=== PATIENT | female | born 1960 | race Caucasian/White ===

== ENCOUNTER 2016-06-05 09:07 | Emergency (ER) | payer MEDICAID | END 2016-06-05 10:21 | disposition left against medical advice (07) | LOC: UCCORT 09:07 | DX: H57.8 Other specified disorders of eye and adnexa (principal); Z53.21 Procedure and treatment not carried out due to patient leaving prior to being seen by health care provider ==

== ENCOUNTER 2016-06-05 11:59 | Emergency (ER) | payer MEDICAID ==
[2016-06-05 13:57] VITALS: BP 128/76
--- NOTE | 2016-06-05 14:11 | UC ---
Eye Complaint HPI - HPI Summary HPI Summary: 55 yo female with bilateral eye redness and d/c (R>L) no eye pain right eye matted shut this am - History of Current Complaint Chief Complaint: UCEye Stated Complaint: EYE COMPLAINT Time Seen by Provider: 06/05/16 13:46 Hx Obtained From: Patient Onset/Duration: Gradual Onset, Lasting Days Timing: Constant Severity Initially: Mild Severity Currently: Mild Pain Intensity: 0 Pain Scale Used: 0-10 Numeric Location of Injury: Conjunctiva Aggravating Factor(s): Nothing Alleviating Factor(s): Nothing Associated Signs And Symptoms: Positive: Drainage (Purulent) - Risk Factors Penetrating Injury Risk Factor: Negative Globe Rupture Risk Factors: Negative Acute Glaucoma Risk Factors: Negative Optic Artery Occlusion Risk Factors: Negative - Allergies/Home Medications Allergies/Adverse Reactions: Allergies Allergy/AdvReac Type Severity Reaction Status Date / Time Bupropion [From Wellbutrin] Allergy Unknown Unknown Verified 09/30/14 18:11 Reaction Details Dicloxacillin Allergy Unknown Unknown Verified 09/30/14 18:11 Reaction Details Erythromycin Allergy Unknown Unknown Verified 09/30/14 18:11 Reaction Details Penicillins Allergy Unknown Unknown Verified 09/30/14 18:11 Reaction Details Sulfamethoxazole Allergy Unknown Unknown Verified 09/30/14 18:11 Reaction Details Sulfamethoxazole Allergy Unknown Unknown Verified 09/30/14 18:11 w/Trimethoprim Reaction [From Bactrim] Details Trimethoprim Allergy Unknown Verified 06/05/16 13:57 Reaction Details Home Medications: Home Medications Acetaminophen [Eq Acetaminophen] 500 mg PO Q6HR PRN 06/05/16 [History Confirmed 06/05/16] Centrum Silver 1 tab PO DAILY 06/05/16 [History] Gabapentin CAP(*) [Neurontin 100 mg CAP(*)] 100 mg PO DAILY 06/05/16 [History Confirmed 06/05/16] Nystatin TOP POWDER* 1 applic TOPICAL BID 06/05/16 [History Confirmed 06/05/16] Polyethylene Glycol 3350* [Miralax*] 17 gm PO DAILY 06/05/16 [History Confirmed 06/05/16] guaiFENesin LIQ* [Robitussin*] 5 mg PO Q4H PRN 06/05/16 [History Confirmed 06/05] PMH/Surg Hx/FS Hx/Imm Hx Previously Healthy: Yes - MR Endocrine History Of: Reports: Thyroid Disease - hypothyroidism Psychological History Of: Reports: Depression Other History Of: Hepatitis C - Surgical History Surgical History: Unable to Obtain/Confirm - Family History Known Family History: Positive: Unknown - pt has MR and unsure of PMx - Social History Alcohol Use: Occasionally Alcohol Amount: 1 beer weekly Substance Use Type: None Smoking Status (MU): Never Smoked Tobacco - Immunization History Most Recent Influenza Vaccination: 2016 Review of Systems Constitutional: Negative Skin: Negative Eyes: Drainage, Eye Redness ENT: Negative Respiratory: Negative Cardiovascular: Negative Gastrointestinal: Negative Genitourinary: Negative Motor: Negative Neurovascular: Negative Musculoskeletal: Negative Neurological: Negative Psychological: Negative All Other Systems Reviewed And Are Negative: Yes Physical Exam Triage Information Reviewed: Yes Appearance: Well-Appearing, No Pain Distress, Well-Nourished Vital Signs: Initial Vital Signs Temp 97.7 F 06/05/16 13:49 Pulse 56 06/05/16 13:49 Resp 17 06/05/16 13:49 BP 128/76 06/05/16 13:49 Pulse Ox 99 06/05/16 13:49 Vital Signs Reviewed: Yes Eyes: Positive: Conjunctiva Inflamed, Discharge, Other: - R>>L ENT: Positive: Hearing grossly normal. Negative: Nasal congestion, Nasal drainage, Trismus, Muffled/hoarse voice Neck: Positive: Nontender Respiratory: Positive: Lungs clear, Normal breath sounds, No respiratory distress Cardiovascular: Positive: RRR, No Murmur Musculoskeletal: Positive: ROM Intact, No Edema Neurological Exam: Normal Neurological: Positive: Alert Psychological Exam: Normal Skin Exam: Normal Eye Complaint Course/Dx - Differential Dx/Diagnosis Provider Diagnoses: conjunctivitis Discharge - Discharge Plan Condition: Stable Disposition: HOME Prescriptions: Erythromycin OPHTH.OINT* [Ilotycin OPHTH.OINT*] 1 applic BOTH EYES QID #1 ophth.oint Patient Education Materials: Conjunctivitis (ED) Referrals: Jericho TORRES,Jesus Carvalho [Primary Care Provider] - 4 Days (if not better)
== END 2016-06-05 14:23 | disposition home or self-care (01) ==
LOC: UCCORT 11:59
DX: H10.33 Unspecified acute conjunctivitis, bilateral (principal); Z88.1 Allergy status to other antibiotic agents; Z88.0 Allergy status to penicillin; Z88.8 Allergy status to other drugs, medicaments and biological substances
CPT/HCPCS: 99212; G0463

== ENCOUNTER 2016-10-10 14:02 | Emergency (ER) | payer MEDICAID ==
[2016-10-10 15:01] VITALS: BP 117/63
--- NOTE | 2016-10-10 15:08 | UC ---
Eye Complaint HPI - HPI Summary HPI Summary: 56 YEAR OLD FEMALE PRESENTS WITH COMPLAINS OF BILATERAL EYE DRAINAGE/REDNESS. 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 ?: Yes Onset/Duration: Sudden Onset Timing: Constant Severity Initially: Moderate Severity Currently: Moderate Pain Scale Used: 0-10 Numeric - 5 Location of Injury: Conjunctiva Aggravating Factor(s): Nothing Alleviating Factor(s): Nothing Associated Signs And Symptoms: Positive: Negative - Risk Factors Penetrating Injury Risk Factor: Negative - Allergies/Home Medications Allergies/Adverse Reactions: Allergies Allergy/AdvReac Type Severity Reaction Status Date / Time Bupropion [From Wellbutrin] Allergy Unknown Unknown Verified 10/10/16 15:02 Reaction Details Dicloxacillin Allergy Unknown Unknown Verified 10/10/16 15:02 Reaction Details Erythromycin Allergy Unknown Unknown Verified 10/10/16 15:02 Reaction Details Penicillins Allergy Unknown Unknown Verified 10/10/16 15:02 Reaction Details Sulfamethoxazole Allergy Unknown Unknown Verified 10/10/16 15:02 Reaction Details Sulfamethoxazole Allergy Unknown Unknown Verified 10/10/16 15:02 w/Trimethoprim Reaction [From Bactrim] Details Trimethoprim Allergy Unknown Verified 10/10/16 15:02 Reaction Details PMH/Surg Hx/FS Hx/Imm Hx Previously Healthy: Yes Other History Of: Hepatitis C - Surgical History Surgical History: Yes - Family History Known Family History: Positive: Unknown - pt has MR and unsure of PMx - Social History Alcohol Use: None Alcohol Amount: 1 beer weekly Substance Use Type: None Smoking Status (MU): Never Smoked Tobacco - Immunization History Most Recent Influenza Vaccination: 2016 Review of Systems Constitutional: Negative Skin: Negative Eyes: Drainage, Eye Redness ENT: Negative Respiratory: Negative Cardiovascular: Negative Gastrointestinal: Negative Genitourinary: Negative Motor: Negative Neurovascular: Negative Musculoskeletal: Negative Neurological: Negative Psychological: Negative All Other Systems Reviewed And Are Negative: Yes Physical Exam Triage Information Reviewed: Yes Vital Signs: Initial Vital Signs Temp 36.4 C 10/10/16 14:53 Pulse 60 10/10/16 14:53 Resp 16 10/10/16 14:53 BP 117/63 10/10/16 14:53 Pulse Ox 99 10/10/16 14:53 Vital Signs Reviewed: Yes Eyes: Positive: Conjunctiva Inflamed, Discharge ENT Exam: Normal Dental Exam: Normal Neck exam: Normal Neck: Positive: 1 Respiratory Exam: Normal Cardiovascular Exam: Normal Abdominal Exam: Normal Musculoskeletal Exam: Normal Neurological Exam: Normal Psychological Exam: Normal Skin Exam: Normal Eye Complaint Course/Dx - Differential Dx/Diagnosis Provider Diagnoses: BILATERAL CONJUNCTIVITIS Discharge - Discharge Plan Condition: Stable Disposition: HOME Prescriptions: Tobramycin 0.3% OPHTH.VIRGIE* 1 drop BOTH EYES Q4H #1 btl Patient Education Materials: Conjunctivitis (ED) Referrals: Martina Mcelroy MD [Primary Care Provider] -
== END 2016-10-10 15:19 | disposition home or self-care (01) ==
LOC: UCCORT 14:02
DX: H10.9 Unspecified conjunctivitis (principal); Z88.3 Allergy status to other anti-infective agents; Z88.0 Allergy status to penicillin; Z88.2 Allergy status to sulfonamides; Z86.19 Personal history of other infectious and parasitic diseases
CPT/HCPCS: 99212; G0463

== ENCOUNTER 2016-11-14 09:10 | Emergency (ER) | payer MEDICAID ==
[2016-11-14 09:20] VITALS: BP 120/65
--- NOTE | 2016-11-14 09:23 | UC ---
Eye Complaint HPI - HPI Summary HPI Summary: 56 year old female presents with right eye redness and discharge. - History of Current Complaint Chief Complaint: UCEye Stated Complaint: RIGHT EYE COMPLAINT Time Seen by Provider: 11/14/16 09:22 Hx Obtained From: Patient Hx Last Menstrual Period: n/a Onset/Duration: Sudden Onset Timing: Constant Severity Initially: Moderate Severity Currently: Moderate Pain Scale Used: 0-10 Numeric - 4 - Allergies/Home Medications Allergies/Adverse Reactions: Allergies Allergy/AdvReac Type Severity Reaction Status Date / Time Bupropion [From Wellbutrin] Allergy Unknown Unknown Verified 11/14/16 09:21 Reaction Details Dicloxacillin Allergy Unknown Unknown Verified 11/14/16 09:21 Reaction Details Erythromycin Allergy Unknown Unknown Verified 11/14/16 09:21 Reaction Details Penicillins Allergy Unknown Unknown Verified 11/14/16 09:21 Reaction Details Sulfamethoxazole Allergy Unknown Unknown Verified 11/14/16 09:21 Reaction Details Sulfamethoxazole Allergy Unknown Unknown Verified 11/14/16 09:21 w/Trimethoprim Reaction [From Bactrim] Details Trimethoprim Allergy Unknown Verified 11/14/16 09:21 Reaction Details Home Medications: Home Medications Clotrimazole/Betamethasone* [Lotrisone Cream*] 1 applic TOPICAL BID 11/14/16 [ History Confirmed 11/14/16] Polyethylene Glycol 3350* [Miralax*] 17 gm PO DAILY 11/14/16 [History Confirmed 11/14/16] PMH/Surg Hx/FS Hx/Imm Hx Previously Healthy: Yes Other History Of: Hepatitis C - Surgical History Surgical History: None - Family History Known Family History: Positive: Unknown - pt has MR and unsure of PMx - Social History Alcohol Use: None Alcohol Amount: 1 beer weekly Substance Use Type: None Smoking Status (MU): Never Smoked Tobacco - Immunization History Most Recent Influenza Vaccination: 10/2016 Review of Systems Constitutional: Negative Skin: Negative Eyes: Drainage, Eye Redness, Photophobia ENT: Negative Respiratory: Negative Cardiovascular: Negative Gastrointestinal: Negative Genitourinary: Negative Motor: Negative Neurovascular: Negative Musculoskeletal: Negative Neurological: Negative Psychological: Negative All Other Systems Reviewed And Are Negative: Yes Physical Exam Triage Information Reviewed: Yes Vital Signs: Initial Vital Signs Temp 36.6 C 11/14/16 09:15 Pulse 62 11/14/16 09:15 Resp 18 11/14/16 09:15 BP 120/65 11/14/16 09:15 Pulse Ox 97 11/14/16 09:15 Vital Signs Reviewed: Yes Eyes: Positive: Conjunctiva Inflamed, Discharge ENT Exam: Normal Dental Exam: Normal Neck exam: Normal Neck: Positive: 1 Respiratory Exam: Normal Cardiovascular Exam: Normal Abdominal Exam: Normal Musculoskeletal Exam: Normal Neurological Exam: Normal Psychological Exam: Normal Skin Exam: Normal Eye Complaint Course/Dx - Differential Dx/Diagnosis Provider Diagnoses: right eye conjunctivitis Discharge - Discharge Plan Condition: Stable Disposition: HOME Prescriptions: DOXYcycline CAP(*) [DOXYcycline 100MG CAP(*)] 100 mg PO BID #14 cap Tobramycin/Dexameth OPTH.SUSP* [Tobradex 0.3-0.1%*] 1 drop RIGHT EYE Q8H #1 btl Patient Education Materials: Conjunctivitis (ED) Referrals: Martina Mcelroy MD [Primary Care Provider] -
== END 2016-11-14 09:36 | disposition home or self-care (01) ==
LOC: UCCORT 09:10
DX: H10.9 Unspecified conjunctivitis (principal); B19.20 Unspecified viral hepatitis C without hepatic coma; Z88.0 Allergy status to penicillin; Z88.2 Allergy status to sulfonamides
CPT/HCPCS: 99212; G0463

== ENCOUNTER 2019-04-16 20:08 | Emergency (ER) | payer MEDICAID ==
--- OUTSIDE RECORDS SUMMARY | 2019-04-16 20:14 | XMS REPORT | Continuity of Care Document ---
:1960 External Reference #:[id number] Author Name Javon Barnes MD Address [address] [place] [address] Care Team Providers Name Role Phone Karely Urena MD - Gastroenterology Care Team Information Supervisor Cd Area Medina Madison MD - Care Team Information Supervisor Cd Area [phone] Obstetrics & Gynecology Manda Kang DO - Emergency Medicine Care Team Information Supervisor Cd Area [facility], PT/OT/PASSEMENTERIE WORKER/[address] Care Team Information Supervisor Cd Area [phone] Wiley Howard MD - Emergency Care Team Information Supervisor Cd Area [phone] Medicine Manuel Pedroza MD - Family Medicine Care Team Information Supervisor Cd Area Problems Active Problems Provider Date Peripheral venous insufficiency Keara Guillen PA-C Onset: 09/25/2014 Note: Good arterial flow per vascular surgeon (Dr. Cole). Bipolar disorder Keara Guillen PA-C Onset: 09/25/2014 Note: Dr. Galeana H/O: peptic ulcer Keara Guillen PA-C Onset: 09/25/2014 Note: 2009 HP- Hypothyroidism Keara Guillen PA-C Onset: 09/25/2014 Note: TSH Sep 2014 0.4 Disorder of iron metabolism Keara Guillen PA-C Onset: 09/25/2014 Note: Ferritin September Angiodysplasia of duodenum Keara Guillen PA-C Onset: 09/25/2014 Note: cauterized 2013 Disorder of stomach Keara Guillen PA-C Onset: 09/25/2014 Note: GAVE Obesity Keara Guillen PA-C Onset: 09/25/2014 Kidney stone Keara Guillen PA-C Onset: 09/25/2014 Note: L Degenerative joint disease involving Keara Guillen PA-C Onset: 2014 multiple joints Cirrhosis - non-alcoholic Keara Guillen PA-C Onset: 09/25/2014 Note: due to hepatitis C 1a Apr 2014 RNA 1 201 270; last endoscopy to D4 Bx Feb 2015 when had small varices F1; liver US 2013. First degree atrioventricular block Keara Guillen PA-C Onset: 2014 Obstructive sleep apnea syndrome Keara Guillen PA-C Onset: 09/25/2014 Note: refuses CPAP Cerebral palsy Keara Guillen PA-C Onset: 09/25/2014 Note: Ventriculoperitoneal shunt, partial removal parietal lobe; refuses indwelling catheter Chronic hepatitis C Martina Mcelroy MD Onset: 03/02/2015 History of chronic urinary tract infection Pia Tracy M.D. Onset: 2015 Hypothermia Martina Mcelroy MD Onset: 01/14/2017 Thrombocytopenic disorder Martina Mcelroy MD Onset: 01/14/2017 Leukopenia Quinn Pereyra DO Onset: 01/19/2017 Anemia Quinn Pereyra DO Onset: 01/13/2018 Social History Type Date Description Comments Sex Unknown Tobacco Use Start: Unknown Light tobacco smoker (10 or fewer cigarettes/day) Smoking Status Reviewed: 02/23/19 Light tobacco smoker (10 or fewer cigarettes/day) ETOH Use Rarely consumes alcohol Tobacco Use Start: Unknown Patient has never smoked Recreational Drug Use Never Used Drugs Allergies, Adverse Reactions, Alerts Active Allergies Reaction Severity Comments Date Erythromycin 07/24/2008 Wellbutrin 07/24/2008 Bupropion HCL 02/10/2014 Penicillins 02/10/2014 Dicloxacillin 06/03/2010 Erythromycin Base 02/10/2014 Sulfamethoxazole 02/10/2014 Trimethoprim 02/10/2014 Bactrim rash 01/19/2015 Propranolol Severe Bradycardia 01/19/2015 Medications Active Medications SIG Qnty Indications Ordering Date Provider Rosuvastatin Calcium take 1 tablet by 90tabs E78.2 Martina Mcelroy, 2018 mouth every day 5mg Tablets Wheelchair Patient will need Gagen, 03/05/2018 [place] wheelchair MS Raisa, assessment done [employer]-C, CNM please. dx: g80.9 g40.409 Mucinex take 1 every 12 30tabs R05 Gagen, 01/20/2018 600mg Tablets hours as needed MS Raisa, ER 12HR for congestion [employer]C, CNM with a full glass of water Levothyroxine Sodium 1 by mouth every 90tabs Martina Mcelroy, 12/27/2017 day 100mcg Tablets Vitamin D3 After finishing 30caps E55.9 Gagen, 10/14/2017 2000Unit high dose Vitamin MS Raisa, Capsules D, take one [employer]-C, CNM capsule every day in morning Wheelchair use non motorized 1units G80.9 Martina Mcelroy, 09/02/2017 [place] wheelchair to MD transport patient M24.532 R26.89 Miralax 255gm with 64 oz of 1Bottle Martina Mcelroy MD 05/15/2017 Powder what ever she wants to drink and drink it all prn Venlafaxine HCL 1 by mouth every day Unknown 37.5mg Tablets BM Protocol If no BM in 3 days (by Unknown 8 pm the third day) Jv is to receive prn medication for bowel management Gabapentin 1 tab by mouth once at 30caps Martina Mcelroy MD 100mg Capsules night Nystop apply to inframammary 60gm Manuel ePdroza, [id number]/GM Powder rash twice a day and to rash on inner thighs twice a day as needed under breast twice a day Guaifenesin 10 milliliters by mouth Unknown 100mg/5ML Syrup every 4 hrs prn Centrum Silver 1 by mouth every day Unknown Tablets Artificial Tears 1-2 drops twice a day Unknown Solution as needed ([facility]) Antacid 10ml q 2hrs prn Unknown 10ml Suspension [place] Carbonate twice a day Unknown 150mg Capsules Acetaminophen 1 tab po q6hrs prn Unknown 500mg Tablets History Medications Nitrofurantoin 1 tab by mouth 10caps Martina Mcelroy MD 08/31/2018 - Macrocrystal twice a day for 11/19/2018 100mg Capsules 5 days PPD Unknown Injection PPD Unknown Injection PPD Unknown Injection Medications Administered in Office Medication SIG Qnty Indications Ordering Provider Date Depomedrol 40mg/1cc Carlos Enrique Garsia MD 06/03/2010 (methylprednisolone acetate) Injection Jesus Jimenes MD 05/16/2008 Injection Depomedrol 40mg/1cc Amanda Funes MD 07/26/2007 (methylprednisolone acetate) Injection Jesus Jimenes MD 07/07/2007 Injection Immunizations CPT Code Status Date Vaccine Lot # [id number] Given 11/19/2018 Influenza Virus Vaccine, Quadrivalent, 36 Mos+, [id number] .5ML 04559 Given 11/05/2017 Tdap injection [id number] 81081 Given 11/05/2017 Influenza Virus Vaccine, Quadrivalent, 36 Mos+, [id number] .5ML 51698 Given 11/06/2016 Influenza Virus Vaccine Quadrivalent Iiv4 [place] [id number] [address] Given 12/19/2015 Influenza Virus Vaccine Split Virus Use For [id number] Individual 3Yr Older [id number] Given 11/06/2014 Influenza Vaccine (Fluzone) Age 3 And Older [id number] 35398 Given 11/06/2014 Pneumococcal Conjugate Vaccine 13 Valent For [id number] Intramuscular Use 85326 Given 12/07/2007 flu vaccination 88588 Given 12/24/2006 flu vaccination 08570 Given 07/10/2006 Pneumovax Injection 34894 Given 02/09/1995 Pneumovax Injection 25289 Given 02/09/1994 Tetnus Injection [id number] Refused 01/23/2015 Tdap injection Vital Signs Date Vital Result Comment 02/23/2019 1:57pm BP Systolic 120 mmHg BP Diastolic 62 mmHg Body Temperature 98.8 F Heart Rate 63 /min Respiratory Rate 20 /min Height 62 inches 5'2" [place] body weight in kilograms 50 kg O2 % BldC Oximetry 91 % 02/07/2019 9:36am BP Systolic 136 mmHg BP Diastolic 72 mmHg Body Temperature 96.8 F Heart Rate 55 /min Respiratory Rate 18 /min Height 62 inches 5'2" [place] body weight in kilograms 50 kg O2 % BldC Oximetry 94 % Results Test Acquired Facility Test Result H/L Range Note Date Polychromasia Bld 12/25/2018 N2N/CCD Import Polychromasia 0-1+ Ql Smear Poikilocytosis Bld 12/25/2018 N2N/CCD Import Poikilocytosis 0-1+ Ql Smear Anisocytosis Bld 12/25/2018 N2N/CCD Import Anisocytosis 0-1+ Ql Smear Macrocytes Bld Ql 12/25/2018 N2N/CCD Import Macrocytosis 0-1+ Smear D dimer Feu 12/25/2018 N2N/CCD Import D-Dimer, 0.31 PPP[facility] 12/25/2018 N2N/CCD Import Glucose Screen 91 74-106 BUN [facility]-nc 12/25/2018 N2N/CCD Import Blood Urea 25 High 7-18 Nitrogen Creat SerPl-mCnc 12/25/2018 N2N/CCD Import Creatinine 1.0 0.6-1.3 GFR/Bsa pred.non 12/25/2018 N2N/CCD Import Estimated GFR >60 >60 black SerPl (Non- MDRD-ArVRat [place] GFR/Bsa pred.black 12/25/2018 N2N/CCD Import Estimated GFR >60 >60 SerPl MDRD-ArVRat () BUN/Creat SerPl 12/25/2018 N2N/CCD Import BUN/Creatinine 25.0 Ratio Sodium SerPl-sCnc 12/25/2018 N2N/CCD Import Sodium Level 143 136-145 Potassium 12/25/2018 N2N/CCD Import Potassium Level 4.0 3.5-5.1 SerPl-sCnc Chloride 12/25/2018 N2N/CCD Import Chloride Level 111 High 98-107 SerPl-sCnc Co2 SerPl-sCnc 12/25/2018 N2N/CCD Import Carbon Dioxide 30 21-32 Level Anion Gap 12/25/2018 N2N/CCD Import Anion Gap 2 Low 8-16 SerPl-sCnc Calcium SerPl-mCnc 12/25/2018 N2N/CCD Import Calcium Level 10.1 8.5-10. 1 Prot SerPl-mCnc 12/25/2018 N2N/CCD Import Total Protein 7.1 6.4-8.2 Albumin SerPl-mCnc 12/25/2018 N2N/CCD Import Albumin 3.7 3.4-5.0 Globulin Ser 12/25/2018 N2N/CCD Import Globulin 3.4 1.9-4.3 Calc-nc Albumin/Glob SerPl 12/25/2018 N2N/CCD Import Albumin/Globulin 1.1 Ratio Bilirub SerPl-nc 12/25/2018 N2N/CCD Import Total Bilirubin 0.4 0.2- 1.0 Ast [facility] 12/25/[facility] N2N/CCD Import Aspartate Amino 19 15-37 Transf (Ast/Sgot) Alt SerPl-cCnc 12/25/2018 N2N/CCD Import Alanine 36 12-78 Aminotransferase (Alt/SGPT) Alp SerPl-[facility] 12/25/2018 N2N/CCD Import Alkaline 126 High 45-117 Phosphatase Xray 12/25/2018 [facility] - Radiology CT, Abdomen & gallston [address] Pelvis W Contrast es, [place] [address] efs [phone] WBC # XXX Auto 12/25/2018 N2N/CCD Import White Blood Count 4.0 3.1-10. 7 Laboratory test 12/25/2018 [facility] Troponin-I < 0.015 1, [address] ng/[place] [address] [phone] RBC # Bld Auto 12/25/2018 N2N/CCD Import Red Blood Count 3.71 Low 3.90- 5. 40 Hgb Bld-[facility] 12/25/2018 N2N/CCD Import Hemoglobin 12.2 11.6-15 .8 Hct VFr Bld Auto 12/25/2018 N2N/CCD Import Hematocrit 37.8 36.0-46 .1 MCV RBC Auto 12/25/2018 N2N/CCD Import Mean Corpuscular 101.9 High 80.9- 99 Volume .0 MCH RBC Qn Auto 12/25/2018 N2N/CCD Import Mean Corpuscular 32.9 High 25.9 -32 Hemoglobin .7 MCHC RBC Auto-mCnc 12/25/2018 N2N/CCD Import Mean Corpuscular 32.3 30.8- 34 Hemoglobin Concent .3 Platelet # Bld 12/25/2018 N2N/CCD Import Platelet Count 98 Low 155-360 Auto RDW RBC Auto 12/25/2018 N2N/CCD Import Red Cell 60.4 High 36-47 Distribution Width RDW RBC Auto-Rto 12/25/2018 N2N/CCD Import RDW Coefficient of 16.3 High 11.7-14 Variation .4 PMV Bld Auto 12/25/2018 N2N/CCD Import Mean Platelet 11.1 8.9-12. Volume 4 Neutrophils/leuk 12/25/2018 N2N/CCD Import Neutrophils (%) 72.4 40.4-72 NFr Bld Auto (Auto) .8 Lymphocytes/leuk 12/25/2018 N2N/CCD Import Lymphocytes (%) 19.0 Low 20.0- 42 NFr Bld Auto (Auto) .0 Monocytes/leuk NFr 12/25/2018 N2N/CCD Import Monocytes (%) 6.7 4.3-13. Bld Auto (Auto) 2 Eosinophil/leuk 12/25/2018 N2N/CCD Import Eosinophils (%) 1.2 0.0-6.6 NFr Bld Auto (Auto) Basophils/leuk NFr 12/25/2018 N2N/CCD Import Basophils (%) 0.5 0.0-1.1 Bld Auto (Auto) Imm 12/25/2018 N2N/CCD Import Immature 0.2 0.0-5.0 Granulocytes/leuk Granulocyte % NFr Bld Auto (Auto) nRBC/100 WBC Bld 12/25/2018 N2N/CCD Import Nucleated Red 0.0 < 10/ Auto-Rto Blood Cells % 100 WBC (auto) Neutrophils # Bld 12/25/2018 N2N/CCD Import Neutrophils # 2.90 1.8-7.0 Auto (Auto) Lymphocytes # Bld 12/25/2018 N2N/CCD Import Lymphocytes # 0.76 Low 1.0- 4.0 Auto (Auto) Monocytes # Bld 12/25/2018 N2N/CCD Import Monocytes # (Auto) 0.27 Low 0.3 -0.9 Auto Eosinophil # Bld 12/25/2018 N2N/CCD Import Eosinophils # 0.05 0.0-0.5 Auto (Auto) Basophils # Bld 12/25/2018 N2N/CCD Import Basophils # (Auto) 0.02 0.0- 0.1 Auto Imm Granulocytes # 12/25/2018 N2N/CCD Import Immature 0.01 Bld Auto Granulocyte # (Auto) nRBC # Bld Auto 12/25/2018 N2N/CCD Import Nucleated RBC 0.00 Absolute Count (auto) Unloinc 12/25/2018 N2N/CCD Import Manual Slide . Review (Hematology) Glycohemoglobin 11/11/2018 [facility] Glycohemoglobin 4.2 % Normal 4.2-6.3 3, [address] (A1c) [place], [place] [id number] [phone] eAG 74 mg/dL Differential-WBC Confirm 11/11/2018 [facility] Total Cells 100 #CELLS [address] Counted [place], [place] [id number] [phone] Band% 2 % Normal 0-8 Neutrophils% 55 % Normal 33-73 Lymph% 35 % Normal 20-42 Monocyte% 7 % Normal 0-10 Basophil% 1 % Normal 0-2 Platelet Estimate MOD DECREASE Polychromasia 0-1+ Anisocytosis 0-1+ Macrocytosis 0-1+ Basophilic Stippling 0-1+ Comprehensive 11/11/2018 [facility] Glucose 74 mg/dL Normal 74-106 Metabolic Panel [address] [place], [place] [id number] [phone] BUN 23 mg/dL High 7-18 Creatinine 1.0 mg/dL Normal 0.6-1.3 Glom Filtration Rate, Estimate >60 mL/min >60 If >60 mL/min >60 5 BUN/Creat 23.0 ratio Sodium 145 mmol/L Normal 136-145 Potassium 4.3 mmol/L Normal 3.5-5.1 Chloride 110 mmol/L High 98-107 Carbon Dioxide 29 mmol/L Normal 21-32 Anion Gap 6 mEq/L Low 8-16 Calcium 10.3 mg/dL High 8.5-10.1 Total Protein 7.5 g/dL Normal 6.4-8.2 Albumin 3.9 g/dL Normal 3.4-5.0 Globulin 3.6 g/dL Normal 1.9-4.3 Alb/Glob 1.1 ratio Bilirubin,Total 0.3 mg/dL Normal 0.2-1.0 Sgot/Ast 24 U/L Normal 15-37 SGPT/Alt 50 U/L Normal 12-78 Alkaline Phosphatase 127 U/L High 45-117 CBC W/Automated 11/11/2018 [facility] White Blood 2.9 K/uL Low 3.1-10.[address] [place] [address] [phone] Red Blood Count 3.98 M/uL Normal 3.90-5.40 Hemoglobin 12.9 gm/dL Normal 11.6-15.8 Hematocrit 39.7 % Normal 36.0-46.1 Mean Cell Volume 99.7 fl High 80.9-99.0 Mean Corpuscular HGB 32.4 pg Normal 25.9-32.7 Mean Corpuscular HGB Conc 32.5 g/dL Normal 30.8-34.3 Platelet Count 102 K/uL Low 155-360 Red Cell Distri Width SD 56.7 fl High 36-47 Red Cell Distri Width %CV 15.4 % High 11.7-14.4 Mean Platelet Volume 11.4 fl Normal 8.9-12.4 Neut% 57.8 % Normal 40.4-72.8 Lymph % 33.2 % Normal 20.0-42.0 Crisp % 6.6 % Normal 4.3-13.2 Eo% 1.4 % Normal 0.0-6.6 Bas% 0.7 % Normal 0.0-1.1 Immature Grans 0.3 % Normal 0.0-5.0 NRBC % 0.0 /100WBC < 10/ 100 WBC Neut# 1.67 K/uL Low 1.8-7.0 Lymph # 0.96 K/uL Low 1.0-4.0 Crisp # 0.19 K/uL Low 0.3-0.9 Eos # 0.04 K/uL Normal 0.0-0.5 Baso # 0.02 K/uL Normal 0.0-0.1 Immature Grans Absolute 0.01 K/uL NRBC # 0.00 K/uL Slide Review 11/11/2018 [facility] Slide Review DIFF [address] [place] [address] [phone] Path Review: 11/11/2018 [facility] Path Review: INDICATED [address] ,[place] [address] <SEE [phone] NOTE> Sodium SerPl-sCnc 10/12/2018 N2N/CCD Import Sodium SerPl-sCnc 143 136- 145 Serum or plasma 10/12/2018 N2N/CCD Import Serum or plasma 42.2 urea urea nitrogen/creatini nitrogen/creatini ne mass rati ne mass ratio GFR/Bsa 10/12/2018 N2N/CCD Import GFR/Bsa >60 >60 pred.black SerPl pred.black SerPl MDRD-ArVRat MDRD-ArVRat Estimated 10/12/2018 N2N/CCD Import Estimated >60 >60 glomerular glomerular filtration rate filtration rate (GFR) non-Afr (GFR) non- Serum or plasma 10/12/2018 N2N/CCD Import Serum or plasma 0.9 0.6-1.3 creatinine creatinine measurement measurement (mass/volum (mass/volume) Serum or plasma 10/12/2018 N2N/CCD Import Serum or plasma 38 High 7-18 urea nitrogen urea nitrogen measurement measurement (mass/vo (mass/volume) Serum or plasma 10/12/2018 N2N/CCD Import Serum or plasma 69 Low 74-106 glucose glucose measurement measurement (mass/volume) (mass/volume) Automated blood 10/12/2018 N2N/CCD Import Automated blood 0.00 nucleated nucleated erythrocyte count erythrocyte count (count (count/volume) Automated blood 10/12/2018 N2N/CCD Import Automated blood 0.01 immature immature granulocyte count granulocyte count (number (number/volume) Automated blood 10/12/2018 N2N/CCD Import Automated blood 0.02 0.0-0.1 basophil count basophil count (number/volume) (number/volume) Automated blood 10/12/2018 N2N/CCD Import Automated blood 0.01 0.0-0.5 eosinophil count eosinophil count Blood monocytes 10/12/2018 N2N/CCD Import Blood monocytes 0.39 0.3-0.9 automated count automated count (number/volume) (number/volume) Automated blood 10/12/2018 N2N/CCD Import Automated blood 1.03 1.0-4.0 lymphocyte count lymphocyte count (number/volume) (number/volume) Absolute 10/12/2018 N2N/CCD Import Absolute 2.38 1.8-7.0 neutrophil count neutrophil count Automated blood 10/12/2018 N2N/CCD Import Automated blood 0.0 < 10/ 100 nucleated nucleated WBC erythrocyte count erythrocyte count as per as percentage of total leukocytes Automated blood 10/12/2018 N2N/CCD Import Automated blood 0.3 0.0-5.0 immature immature granulocyte count granulocyte count as perc as percentage of total leukocytes Automated 10/12/2018 N2N/CCD Import Automated 0.5 0.0-1.1 basophil % basophil % Automated 10/12/2018 N2N/CCD Import Automated 0.3 0.0-6.6 eosinophil % eosinophil % Automated 10/12/2018 N2N/CCD Import Automated 10.2 4.3-13.2 monocyte % monocyte % Automated blood 10/12/2018 N2N/CCD Import Automated blood 26.8 20.0- 42.0 lymphocytes/100 lymphocytes/100 leukocytes leukocytes Serum or plasma 10/12/2018 N2N/CCD Import Serum or plasma 1.20 0.76- 1.46 free thyroxine free thyroxine (FT4) measurement (FT4) measurement ( (mass/volume) Serum or plasma 10/12/2018 N2N/CCD Import Serum or plasma 0.16 Low 0.30- 4.20 thyrotropin thyrotropin measurement measurement (units/vol (units/volume) Serum or plasma 10/12/2018 N2N/CCD Import Serum or plasma <0.015 troponin troponin i.cardiac i.cardiac measurement (ma measurement (mass/volume) Serum or plasma 10/12/2018 N2N/CCD Import Serum or plasma 57.0 <125 natriuretic natriuretic peptide B peptide B prohormone N prohormone N-terminal measurement (mass/volume) Serum or plasma 10/12/2018 N2N/CCD Import Serum or plasma 93 45-117 alkaline alkaline phosphatase phosphatase measurement ( measurement (enzymatic activity/volume) Serum or plasma 10/12/2018 N2N/CCD Import Serum or plasma 43 12-78 alanine alanine aminotransferase aminotransferase measureme measurement (enzymatic activity/volume) Serum or plasma 10/12/2018 N2N/CCD Import Serum or plasma 26 15-37 aspartate aspartate aminotransferase aminotransferase measure measurement (enzymatic activity/volume) Serum or plasma 10/12/2018 N2N/CCD Import Serum or plasma 0.4 0.2-1.0 total bilirubin total bilirubin measurement measurement (mass/ (mass/volume) Serum or plasma 10/12/2018 N2N/CCD Import Serum or plasma 1.0 albumin/globulin albumin/globulin mass ratio mass ratio Serum globulin 10/12/2018 N2N/CCD Import Serum globulin 3.5 1.9-4.3 measurement by measurement by calculation calculation (mass/vo (mass/volume) Serum or plasma 10/12/2018 N2N/CCD Import Serum or plasma 3.5 3.4-5.0 albumin albumin measurement measurement (mass/volume) (mass/volume) Serum or plasma 10/12/2018 N2N/CCD Import Serum or plasma 7.0 6.4-8.2 protein protein measurement measurement (mass/volume) (mass/volume) Serum or plasma 10/12/2018 N2N/CCD Import Serum or plasma 2.1 1.8-2.4 magnesium magnesium measurement measurement (mass/volume (mass/volume) Serum or plasma 10/12/2018 N2N/CCD Import Serum or plasma 10.0 8.5-10.1 calcium calcium measurement measurement (mass/volume) (mass/volume) Serum or plasma 10/12/2018 N2N/CCD Import Serum or plasma 7 Low 8-16 anion gap anion gap Co2 SerPl-sCnc 10/12/2018 N2N/CCD Import Co2 SerPl-sCnc 25 21-32 Serum or plasma 10/12/2018 N2N/CCD Import Serum or plasma 111 High 98- 107 chloride chloride measurement measurement Serum or plasma 10/12/2018 N2N/CCD Import Serum or plasma 4.1 3.5-5.1 potassium potassium measurement measurement Urobilinogen Ur 10/12/2018 N2N/CCD Import Urine 0.2 0.2-1.0 Strip-Bannerc Urobilinogen Prot Ur 10/12/2018 N2N/CCD Import Urine Protein Negative Negative Strip.auto-mCnc Ketones Ur 10/12/2018 N2N/CCD Import Urine Ketones Negative Negative Strip.auto-mCnc Bilirub Ur Ql 10/12/2018 N2N/CCD Import Urine Bilirubin Negative Negative Strip.auto Glucose Ur 10/12/2018 N2N/CCD Import Urine Glucose Negative Negative Strip.auto-mCnc (Ua) Epithelial cells 10/12/2018 N2N/CCD Import Epithelial cells Very Few None Seen detection in detection in urine sediment by urine sediment by light microscopy Urine sediment 10/12/2018 N2N/CCD Import Urine sediment 0-2 0-7 leukocyte count leukocyte count by microscopy by microscopy (numb (number/high power field) Automated urine 10/12/2018 N2N/CCD Import Automated urine 5-10 High 0-2 sediment sediment erythrocyte count erythrocyte count by micr by microscopy (number/high power field) Urine leukocyte 10/12/2018 N2N/CCD Import Urine leukocyte Trace High Negative esterase esterase detection by detection by automated te automated test strip Urine nitrite 10/12/2018 N2N/CCD Import Urine nitrite Negative Negative detection by detection by automated test automated test strip strip Urine 10/12/2018 N2N/CCD Import Urine 0.2 0.2-1.0 urobilinogen urobilinogen measurement measurement (units/volume) by (units/volume) by t test strip Urine protein 10/12/2018 N2N/CCD Import Urine protein Negative Negative measurement by measurement by automated test automated test strip strip (mass/volume) Urine pH 10/12/2018 N2N/CCD Import Urine pH 7.0 6.5-7.5 measurement by measurement by automated test automated test strip strip Urine hemoglobin 10/12/2018 N2N/CCD Import Urine hemoglobin Moderate High 0-2 detection by detection by automated test automated test strip strip Specific gravity 10/12/2018 N2N/CCD Import Specific gravity 1.010 1.010- 1.0 of Urine by of Urine by 30 Automated test Automated test strip strip Urine ketones 10/12/2018 N2N/CCD Import Urine ketones Negative Negative measurement by measurement by automated test automated test strip strip (mass/volume) Urine total 10/12/2018 N2N/CCD Import Urine total Negative Negative bilirubin bilirubin detection by detection by automated test automated test strip Urine glucose 10/12/2018 N2N/CCD Import Urine glucose Negative Negative measurement by measurement by automated test automated test strip strip (mass/volume) Urine appearance 10/12/2018 N2N/CCD Import Urine appearance Clear Clear determination determination Urine color 10/12/2018 N2N/CCD Import Urine color Yellow Yellow determination determination Ua RFX Micro & 10/12/2018 [facility] Urine Color YELLOW Yellow 7 Culture II [address] [place] [address] [phone] Urine Clarity CLEAR Clear Urine Glucose - Dipstick NEGATIVE mg/dL Negative Urine Bilirubin - Dipstick NEGATIVE Negative Urine Ketone NEGATIVE mg/dL Negative Urine Specific [place] 1.010 Normal 1.010-1.030 Urine Blood MODERATE Abnormal 0-2 Urine PH 7.0 Normal 6.5-7.5 Urine Protein - Dipstick NEGATIVE mg/dL Negative Urine Urobilinogen - Dipstick 0.2 E.U./dL Normal 0.2-1.0 Urine Nitrite - Dipstick NEGATIVE Negative Urine Leuk Esterase TRACE Abnormal Negative Urine RBC 5-10 rbc/hpf High 0-2 Urine WBC 0-2 wbc/hpf 0-7 Urine Epithelial Cells VERY FEW /lpf None Seen Source: URINE, CLEAN CAT <SEE NOTE> 8 Automated blood 10/12/2018 N2N/CCD Import Automated blood 61.9 40.4- 72.8 neutrophils/100 neutrophils/100 leukocytes leukocytes Automated blood 10/12/2018 N2N/CCD Import Automated blood 11.2 8.9-12.4 platelet mean platelet mean volume measurement volume measurement Automated 10/12/2018 N2N/CCD Import Automated 15.2 High 11.7-14.4 erythrocyte erythrocyte distribution width distribution width ratio ratio Automated 10/12/2018 N2N/CCD Import Automated 55.9 High 36-47 erythrocyte erythrocyte distribution width distribution width Automated blood 10/12/2018 N2N/CCD Import Automated blood 106 Low 155- 360 platelet count platelet count (count/volume) (count/volume) Automated 10/12/2018 N2N/CCD Import Automated 32.6 30.8-34.3 erythrocyte mean erythrocyte mean corpuscular corpuscular hemoglobin hemoglobin concentration measurement (mass/volume) Automated 10/12/2018 N2N/CCD Import Automated 32.7 25.9-32.7 erythrocyte mean erythrocyte mean corpuscular corpuscular hemoglobin hemoglobin (mass per erythrocyte) Automated 10/12/2018 N2N/CCD Import Automated 100.3 High 80.9-99.0 erythrocyte mean erythrocyte mean corpuscular volume corpuscular volume (MCV (MCV) measurement Hct VFr Bld Auto 10/12/2018 N2N/CCD Import Hct VFr Bld Auto 36.5 36.0- 46.1 Blood hemoglobin 10/12/2018 N2N/CCD Import Blood hemoglobin 11.9 11.6- 15.8 measurement measurement (mass/volume) (mass/volume) Blood erythrocytes 10/12/2018 N2N/CCD Import Blood erythrocytes 3.64 Low 3.90-5.40 automated count automated count (number/volume) (number/volume) Nitrite Ur Ql 10/12/2018 N2N/CCD Import Urine Nitrite Negative Negative Strip.auto Leukocyte esterase 10/12/2018 N2N/CCD Import Urine Leukocyte Trace High Negative Ur Ql Strip.auto Esterase Capillary blood 10/12/2018 N2N/CCD Import Capillary blood 79 70-110 glucose glucose measurement by measurement by glucometer glucometer (mass/volume) Aot Request 10/12/2018 [facility] Aot Request Test(s) [address] [place] [address] [phone] Tests to be added: bnp * Miscellaneous 10/12/2018 N2N/CCD Import * Miscellaneous Test(s) studies (set) studies (set) added Automated 10/12/2018 N2N/CCD Import Automated 3.8 3.1-1 leukocyte count leukocyte count 0.7 (number/volume) (number/volume) Laboratory test 10/12/2018 [facility] [place] 0.87 mmol/L Normal 0.60- finding [address] [place] [address] [phone] CBC W/Automated 10/12/2018 [facility] White Blood Count 3.8 K/uL Normal 3.1-[address] [place] [address] [phone] Red Blood Count 3.64 M/uL Low 3.90-5.40 Hemoglobin 11.9 gm/dL Normal 11.6-15.8 Hematocrit 36.5 % Normal 36.0-46.1 Mean Cell Volume 100.3 fl High 80.9-99.0 Mean Corpuscular HGB 32.7 pg Normal 25.9-32.7 Mean Corpuscular HGB Conc 32.6 g/dL Normal 30.8-34.3 Platelet Count 106 K/uL Low 155-360 Red Cell Distri Width SD 55.9 fl High 36-47 Red Cell Distri Width %CV 15.2 % High 11.7-14.4 Mean Platelet Volume 11.2 fl Normal 8.9-12.4 Neut% 61.9 % Normal 40.4-72.8 Lymph % 26.8 % Normal 20.0-42.0 Crisp % 10.2 % Normal 4.3-13.2 Eo% 0.3 % Normal 0.0-6.6 Bas% 0.5 % Normal 0.0-1.1 Immature Grans 0.3 % Normal 0.0-5.0 NRBC % 0.0 /100WBC < 10/ 100 WBC Neut# 2.38 K/uL Normal 1.8-7.0 Lymph # 1.03 K/uL Normal 1.0-4.0 Crisp # 0.39 K/uL Normal 0.3-0.9 Eos # 0.01 K/uL Normal 0.0-0.5 Baso # 0.02 K/uL Normal 0.0-0.1 Immature Grans Absolute 0.01 K/uL NRBC # 0.00 K/uL Aot Request 10/12/2018 [facility] Aot Request Test(s) added [address] [place], [place] [id number] [phone] Tests to be added: tsh. free t4, ma <SEE NOTE> 11 Miscellaneous studies 10/12/2018 N2N/CCD Import N/A Test(s) added Aot Request 10/12/2018 [facility] Aot Request Test(s) added 12 [address] [place] [address] [phone] Tests to be added: lithium CBC W/Automated 09/24/2018 [facility] White 3.2 K/uL Normal 3.1-10.7 13 Diff [address] [facility] [place] [address] Count [phone] Red Blood Count 3.63 M/uL Low 3.90-5.40 Hemoglobin 12.0 gm/dL Normal 11.6-15.8 Hematocrit 36.0 % Normal 36.0-46.1 Mean Cell Volume 99.2 fl High 80.9-99.0 Mean Corpuscular HGB 33.1 pg High 25.9-32.7 Mean Corpuscular HGB Conc 33.3 g/dL Normal 30.8-34.3 Platelet Count 103 K/uL Low 155-360 Red Cell Distri Width SD 55.8 fl High 36-47 Red Cell Distri Width %CV 15.3 % High 11.7-14.4 Mean Platelet Volume 11.5 fl Normal 8.9-12.4 Neut% 61.8 % Normal 40.4-72.8 Lymph % 29.2 % Normal 20.0-42.0 Crisp % 7.8 % Normal 4.3-13.2 Eo% 0.3 % Normal 0.0-6.6 Bas% 0.9 % Normal 0.0-1.1 Immature Grans 0.0 % Normal 0.0-5.0 NRBC % 0.0 /100WBC < 10/ 100 WBC Neut# 1.97 K/uL Normal 1.8-7.0 Lymph # 0.93 K/uL Low 1.0-4.0 Crisp # 0.25 K/uL Low 0.3-0.9 Eos # 0.01 K/uL Normal 0.0-0.5 Baso # 0.03 K/uL Normal 0.0-0.1 Immature Grans Absolute 0.00 K/uL NRBC # 0.00 K/uL Comprehensive Metabolic 09/24/2018 [facility] Glucose 63 mg/dL Low 74-106 Panel [address] [place] [address] [phone] BUN 27 mg/dL High 7-18 Creatinine 0.9 mg/dL Normal 0.6-1.3 Glom Filtration Rate, Estimate >60 mL/min >60 If >60 mL/min >60 14 BUN/Creat 30.0 ratio Sodium 143 mmol/L Normal 136-145 Potassium 3.7 mmol/L Normal 3.5-5.1 Chloride 113 mmol/L High 98-107 Carbon Dioxide 26 mmol/L Normal 21-32 Anion Gap 4 mEq/L Low 8-16 Calcium 9.7 mg/dL Normal 8.5-10.1 Total Protein 7.4 g/dL Normal 6.4-8.2 Albumin 3.7 g/dL Normal 3.4-5.0 Globulin 3.7 g/dL Normal 1.9-4.3 Alb/Glob 1.0 ratio Bilirubin,Total 0.3 mg/dL Normal 0.2-1.0 Sgot/Ast 25 U/L Normal 15-37 SGPT/Alt 45 U/L Normal 12-78 Alkaline Phosphatase 100 U/L Normal 45-117 Serum or plasma 09/24/2018 N2N/CCD Import Serum or plasma 48.3 30.0- 100.0 25-hydroxyvitamin D 25-hydroxyvitamin D measurement (m measurement (mass/volume) Serum or plasma 09/24/2018 N2N/CCD Import Serum or plasma >20.0 High 3.1- 17.5 folate measurement folate measurement (mass/volume) (mass/volume) Serum or plasma 09/24/2018 N2N/CCD Import Serum or plasma 1695 High 193- 986 vitamin B12 vitamin B12 measurement measurement (mass/volu (mass/volume) Serum or plasma iron 09/24/2018 N2N/CCD Import Serum or plasma 23 12-57 saturation iron saturation measurement (mass measurement (mass fraction) Serum or plasma iron 09/24/2018 N2N/CCD Import Serum or plasma 332 250- 450 binding capacity iron binding measurement capacity measurement (mass/volume) Serum or plasma iron 09/24/2018 N2N/CCD Import Serum or plasma 75 50- 170 measurement iron measurement (mass/volume) (mass/volume) Laboratory test 09/24/2018 [facility] Vitamin 48.3 30.0-100.0 [address] D,25-Hydroxy ng/[place] [address] [phone] Vitamin B12 And 09/24/2018 [facility] Vitamin B12 1695 High 193-[address] pg/[place] [address] [phone] Folic Acid > 20.0 ng/mL High 3.1-17.5 Laboratory test 09/24/2018 [facility] Ferritin 105 ng/mL Normal 8-252 finding [address] [place] [address] [phone] Iron-Tibc-%Sat 09/24/2018 [facility] Serum Iron 75 g/dL Normal 50-170 [address] [place] [address] [phone] Total Iron Binding Capacity 332 g/dL Normal 250-450 Transferrin %Saturation 23 % Normal 12-57 Ua RFX Micro & Culture 09/01/2018 [facility] Urine Color YELLOW Yellow 16 II [address] [place] [address] [phone] Urine Clarity CLEAR Clear Urine Glucose - Dipstick 100 mg/dL High Negative Urine Bilirubin - Dipstick NEGATIVE Negative Urine Ketone NEGATIVE mg/dL Negative Urine Specific [place] <= 1.005 Low 1.010-1.030 Urine Blood NEGATIVE Negative Urine PH 6.5 Normal 6.5-7.5 Urine Protein - Dipstick NEGATIVE mg/dL Negative Urine Urobilinogen - Dipstick 0.2 E.U./dL Normal 0.2-1.0 Urine Nitrite - Dipstick NEGATIVE Negative Urine Leuk Esterase SMALL Abnormal Negative Urine RBC 0-2 rbc/hpf 0-2 Urine WBC 5-10 wbc/hpf 0-7 Urine Epithelial Cells FEW /lpf None Seen Urine Calcium Oxalate Crystals FEW None Seen Urine Amorph Sediment SMALL Negative Source: URINE, CLEAN CAT <SEE NOTE> 17 Urine Culture 09/01/2018 [facility] Urine Culture MIXED URETHRAL F [address] <SEE NOTE> [place] [address] [phone] Quantity 10,000 - 50,000 <SEE NOTE> 19 Calcium oxalate 09/01/2018 N2N/CCD Import Calcium oxalate Few None Seen crystals detection crystals detection in urine sedime in urine sediment by light microscopy Amorphous sediment 09/01/2018 N2N/CCD Import Amorphous sediment Small Negative detection in urine detection in urine sediment by sediment by light microscopy 1 RIGHT CHEST PAIN 2 0.0 - 0.045 ng/mL: Normal 0.046 - 0.5 ng/mL: Suggestive 0.6 - 1.5 ng/mL: Consistent 3 N39.41 R81 D69.6 4 Elevated levels of HbA1c suggest the need for more aggressive treatment of glycemia. The [place] [employer] recommends that a primary goal of therapy should be a HbA1c of <7% and that physicians should re-evaluate the treatment regimen in patients with HbA1c values consistently >8%. 5 Note: Persistent reduction for 3 months or more in an eGFR <60 mL/min/1.73 m2 defines CKD. Patients with eGFR values >/=60 mL/min/1.73 m2 may also have CKD if evidence of persistent proteinuria is present. The original MDRD equation for estimated GFR is not valid for patients less than 18 years of age. Additional information may be found at www.kdoqi.org. 6 INDICATED,SLIDE SENT Leukopenia with absolute neutropenia, lymphopenia, and monocytopenia and thrombocytopenia are seen; rule out infectious, inflammatory, or immune-mediated disorder, drugs, or possible intrinsic marrow disorder. Slight macrocytosis of red blood cells is seen; rule out vitamin B12 or folate deficiency, drugs, liver disease, or thyroid disease. Dr. West 11/11/18. 11/11/18 1045: PATH REVIEW: previously reported as: INDICATED,SLIDE SENT Amended result called to: - 11/11/18 at 1045 7 CHEST PAIN 8 URINE, CLEAN CATCH 9 Tests: bnp Instructions: 10 Tests: tsh. free t4, mag Instructions: 11 tsh. free t4, mag 12 Tests: lithium Instructions: 13 D69.6,D64.9,E55.9 14 Note: Persistent reduction for 3 months or more in an eGFR <60 mL/min/1.73 m2 defines CKD. Patients with eGFR values >/=60 mL/min/1.73 m2 may also have CKD if evidence of persistent proteinuria is present. The original MDRD equation for estimated GFR is not valid for patients less than 18 years of age. Additional information may be found at www.kdoqi.org. 15 Vitamin D deficiency has been defined by the [place] [employer] and an Endocrine Society practice guideline as a level of serum 25-OH vitamin D less than 20 ng/mL (1,2). The Endocrine Society went on to further define vitamin D insufficiency as a level between 21 and 29 ng/mL (2). 1. IOM ([place] of [employer]). 2010. Dietary reference intakes for calcium and D. [place]: The National Academies Press. 2. Maribeth MF, Stephen NC, Betito-Jonny LEE, et al. Evaluation, treatment, and prevention of vitamin D deficiency: an Endocrine Society clinical practice guideline. JCEM. 2010; 96(7):1911-30. Performed at: RN - [facility] [address] [id number] Tape Recording Machine Operator: Mary Kapoor MD, Phone: [phone] 16 N39.0 17 URINE, CLEAN CATCH 18 MIXED URETHRAL SULEMA 19 10,000 - 50,000 CFU/mL Procedures Date Code Description Status 06/22/2018 [id number] Mammogram Completed 02/09/2009 [id number] Colonoscopy Completed Medical Devices Description No Information Available Encounters Type Date Location Provider Dx Diagnosis Office Visit 02/23/2019 Primary Care Molly B34.9 Viral infection, 1:40p Office MD Javon unspecified Office Visit 02/07/2019 Primary Care Manuel Pedroza, Z00.00 Encntr for general 9:20a Office adult medical exam w/o abnormal findings G80.9 Cerebral palsy, unspecified E03.9 Hypothyroidism, unspecified E78.2 Mixed hyperlipidemia L03.116 Cellulitis of left lower limb R60.0 Localized edema Office Visit 01/25/2019 1:00p Primary Care Molly R60.0 Localized edema Office MD Javon Office Visit 01/17/2019 2:00p Primary Care Tori Bosch L03.116 Cellulitis of Office H., PA left lower limb R60.0 Localized edema Office Visit 12/31/2018 10:00a Primary Care Tori Bosch R07.89 Other chest Office H., PA pain K80.20 Calculus of gallbladder w/o cholecystitis w/o obstruction Office Visit 11/19/2018 Primary Care Danitza, D69.6 Thrombocytopenia, 9:30a Office SIRI Ramey unspecified G80.9 Cerebral palsy, unspecified E03.9 Hypothyroidism, unspecified E78.2 Mixed hyperlipidemia G47.30 Sleep apnea, unspecified Z23 Encounter for immunization Office Visit 08/31/2018 2:20p Primary Care Martina Mcelroy, N39.0 Urinary tract Office infection, site not specified N39.41 Urge incontinence Assessments Date Code Description Provider 02/23/2019 B34.9 Viral infection, unspecified Javon Barnes MD 02/07/2019 Z00.00 Encounter for general adult medical Manuel Pedroza MD examination without abnormal findings 02/07/2019 G80.9 Cerebral palsy, unspecified Manuel Pedroza MD 02/07/2019 E03.9 Hypothyroidism, unspecified Manuel Pedroza MD 02/07/2019 E78.2 Mixed hyperlipidemia Manuel Pedroza MD 02/07/2019 L03.116 Cellulitis of left lower limb Manuel Pedroza MD 02/07/2019 R60.0 Localized edema Manuel Pedroza MD 01/25/2019 R60.0 Localized edema Javon Barnes MD 01/17/2019 L03.116 Cellulitis of left lower limb Tori Bosch PA 01/17/2019 R60.0 Localized edema Tori Bosch PA 12/31/2018 R07.89 Other chest pain Tori Bosch PA 12/31/2018 K80.20 Calculus of gallbladder without Tori Bosch PA cholecystitis without obstruction 11/19/2018 D69.6 Thrombocytopenia, unspecified Tori Bosch PA 11/19/2018 G80.9 Cerebral palsy, unspecified Tori Bosch PA 11/19/2018 E03.9 Hypothyroidism, unspecified Tori Bosch PA 11/19/2018 E78.2 Mixed hyperlipidemia Tori Bosch PA 11/19/2018 G47.30 Sleep apnea, unspecified Tori Bosch PA 11/19/2018 Z23 Encounter for immunization Tori Bosch PA 10/20/2018 R81 Glycosuria Raisa Peace, MS, PET CARE ASSOCIATE-C, CNM 09/29/2018 D69.6 Thrombocytopenia, unspecified George Cervantes MD 09/24/2018 D69.6 Thrombocytopenia, unspecified Genet Gore, 09/24/2018 D69.6 Thrombocytopenia, unspecified Oncology Nurse 09/24/2018 D64.9 Anemia, unspecified Genet Gore, DO 09/24/2018 D64.9 Anemia, unspecified Oncology Nurse 09/24/2018 E55.9 Vitamin D deficiency, unspecified Genet Gore, DO 09/24/2018 E55.9 Vitamin D deficiency, unspecified Oncology Nurse 08/31/2018 N39.0 Urinary tract infection, site not Martina Mcelroy MD specified 08/31/2018 N39.41 Urge incontinence Martina Mcelroy MD Plan of Treatment Future Appointment(s):06/16/2019 1:50 pm - Manuel Pedroza MD at Primary Care Lruweu2204/06/2019 10:30 am - Genet Gore DO at Oncology Oxcixp8703/31/2019 10 :30 am - Oncology Nurse at Oncology Gqiwht4406/16/2019 11:00 am - Sonido Dumont PA at Swtaslr2009/29/2018 - George Cervantes MDD69.6 Thrombocytopenia, unspecifiedNew Labs:Comprehensive Metabolic Panel, Ordered: 09/29/18CBC W/ Automated Diff, Ordered: 09/29/18AllFollow up:return in 6 months lab one week before. 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 Currently on 1/2 inch, Closed no choking, pt would like to return to whole food 11/24/18 (ThuNov 24) 09:59 AM Sophia Wilson Spoke [facility]ow NOLAN (Medicaid); both CPT codes 66896 and 11595 are active and do not need PA. Confirmation: [facility]-11/24/18 09:55. 11/24/18 faxed referral, waiting for date/time.. VENKAT [address] [place] [address] [phone]
[2019-04-16 20:21] VITALS: BP 107/55
--- NOTE | 2019-04-16 20:29 | UC ---
Complaint Female HPI - HPI Summary HPI Summary: here with staff from senior living--pt c/o burning with urination that started 3/ , frequency; no known fever - History Of Current Complaint Chief Complaint: UCGU Stated Complaint: URINARY Time Seen by Provider: 04/16/19 20:21 Hx Obtained From: Patient, Family/Licensed Appraiser Hx Last Menstrual Period: n/a ?: No Onset/Duration: Sudden Onset, Lasting Days Timing: Constant Severity Initially: Mild Severity Currently: Mild Pain Intensity: 0 Character: Burning Aggravating Factor(s): Urination - Allergies/Home Medications Allergies/Adverse Reactions: Allergies Allergy/AdvReac Type Severity Reaction Status Date / Time propranolol Allergy Severe Bradycardia Verified 04/16/19 20:22 bupropion [From Wellbutrin] Allergy Unknown Verified 04/16/19 20:22 Reaction Details dicloxacillin Allergy Unknown Verified 04/16/19 20:22 Reaction Details erythromycin base Allergy Unknown Verified 04/16/19 20:22 Reaction Details Penicillins Allergy Unknown Verified 04/16/19 20:22 Reaction Details sulfamethoxazole Allergy Rash Verified 04/16/19 20:22 [From Bactrim] trimethoprim [From Bactrim] Allergy Rash Verified 04/16/19 20:22 Home Medications: Home Medications Levothyroxine TAB* [Synthroid 75 MCG TAB*] 100 mcg PO QAM 09/30/14 [History Confirmed 04/16/19] Gabapentin CAP(*) [Neurontin 100 mg CAP(*)] 100 mg PO BEDTIME 06/05/16 [History Confirmed 04/16/19] Nystatin TOP POWDER* 1 applic TOPICAL BID 06/05/16 [History Confirmed 04/16/19] Polyethylene Glycol 3350* [Miralax (17 GM DOSE CÉSAR)] 17 gm PO DAILY PRN [History Confirmed 04/16/19] Acetaminophen [Acetaminophen Extra Strength] 500 mg PO Q6HR PRN 04/27/18 [ History Confirmed 04/16/19] Cholecalciferol (Vitamin D3) [Vitamin D3] 2,000 unit PO QAM 04/27/18 [History Confirmed 04/16/19] Dextran 70/Hypromellose [Artificials Tears Drops] 1 drop BOTH EYES Q1HR PRN [History Confirmed 04/16/19] Liquid Antacid 10 ml PO SEE INSTRUCTIONS PRN 04/27/18 [History Confirmed ] [place] Carbonate CAP 150 mg PO BID 04/27/18 [History Confirmed 04/16/19] Multivit-Min/Iron/Folic/Lutein [Centrum Silver Women Tablet] 1 tab PO BEDTIME [History Confirmed 04/16/19] Rosuvastatin Calcium 1 tab PO QPM 04/27/18 [History Confirmed 04/16/19] Venlafaxine EXT RELEASE CAP* [Effexor Xr CAP*] 37.5 mg PO QAM 04/27/18 [History Confirmed 04/16/19] guaiFENesin [Guaifenesin] 100 mg PO Q4HR PRN 04/27/18 [History Confirmed ] Nitrofurantoin Monohyd/M-Cryst [Macrobid 100 mg Capsule] 100 mg PO BID #13 cap 04/16/19 [Rx] PMH/Surg Hx/FS Hx/Imm Hx Previously Healthy: Yes Other History Of: Hepatitis C - Surgical History Surgical History: Yes Surgery Procedure, Year, and Place: Colonoscopy 2009. Abscess left leg - Family History Known Family History: Positive: Unknown - pt has MR and unsure of PMx - Social History Occupation: Disabled Lives: Senior Living Alcohol Use: None Alcohol Amount: 1 beer weekly Substance Use Type: None Smoking Status (MU): Never Smoked Tobacco - Immunization History Most Recent Influenza Vaccination: 10/2016 Review of Systems All Other Systems Reviewed And Are Negative: Yes Genitourinary: Positive: Dysuria, Frequency, Urgency Physical Exam Triage Information Reviewed: Yes Appearance: Well-Appearing, Well-Nourished, Pain Distress Vital Signs: Initial Vital Signs Temp 96 F 04/16/19 20:16 Pulse 52 04/16/19 20:16 Resp 16 04/16/19 20:16 BP 107/55 04/16/19 20:16 Pulse Ox 100 04/16/19 20:16 Vital Signs Reviewed: Yes Eye Exam: Normal ENT Exam: Normal Dental Exam: Normal Respiratory Exam: Normal Cardiovascular Exam: Normal Abdominal Exam: Normal Abdomen Description: Positive: Nontender, No Organomegaly, Soft, CVA Tenderness (R) - neg, CVA Tenderness (L) - neg Musculoskeletal Exam: Normal Neurological Exam: Normal Skin Exam: Normal Complaint Female Dx - Course Course Of Treatment: hx obtained, exam performed ,meds reviewed, UA obtained. - Differential Dx/Diagnosis Provider Diagnosis: UTI (urinary tract infection) Discharge ED - Sign-Out/Discharge Documenting (check all that apply): Patient Departure All imaging exams completed and their final reports reviewed: No Studies - Discharge Plan Condition: Stable Disposition: HOME Prescriptions: Nitrofurantoin Monohyd/M-Cryst [Macrobid 100 mg Capsule] 100 mg PO BID #13 cap Patient Education Materials: Urinary Tract Infection in Women (ED) Referrals: Martina Mcelroy MD [Primary Care Provider] - Additional Instructions: 1. take the medication as prescribed. 2. Increase clear fluids 3. Follow up with your primary doctor if not improving or symptoms progress - Billing Disposition and Condition Condition: STABLE Disposition: Home
[2019-04-16] MEDS ORDERED: Nitrofurantoin Macrocrystals* 50 MG CAP PO ONE (20:50)
== END 2019-04-16 21:09 | disposition home or self-care (01) ==
LOC: UCCORT 20:08
DX: N39.0 Urinary tract infection, site not specified (principal); Z88.0 Allergy status to penicillin; Z88.1 Allergy status to other antibiotic agents; Z88.2 Allergy status to sulfonamides; Z88.8 Allergy status to other drugs, medicaments and biological substances
CPT/HCPCS: 81003; 87077; 87086; 87186; 99212; A9270-GY; G0463